=== PATIENT | male | born 1935 | race Caucasian/White ===

== ENCOUNTER 2016-12-06 04:20 | Outpatient (CLI) | payer MEDICARE, OTHER ==
[~2016-12-06] VITALS: Ht 177.8 cm; Wt 78.3 kg
--- NOTE | ~2016-12-06 | HEMODYNAMI ---
PATIENT:RAHEEM DEAN MEDICAL RECORD: [id number] : 37 LOCATION[id number] ADMISSION DATE: 12/06/16 Generatedon:12/07/20169:38 Patient name: RAHEEM DEAN Patient #: [id number] SSN: [id number] : 1935 Date of study: 12/07/2016 Page: Of Hemodynamic Procedure Report Patient Data Patient Demographics Procedure consent was obtained First Name: RAHEEM Gender: Male Last Name: DIANNE : 1935 Patient #: [id number] Age: 81 year(s) Race: Unknown SSN: [id number] Additional ID: [id number] Contact details Address: [address] [place] [address] [address] State: [place] City: [facility] Zip code: [address] Past Medical History Allergies Allergen Reaction Date Comments Reported Other allergy 12/06/2016 statins Other allergy 12/07/2016 STATINS Admission Admission Data Admission Date: 12/06/2016 Admission Time: 4:20 Arrival Date: 12/06/2016 Arrival Time: 4:20 Admit Source: Other Insurance Payor: Medicare Room #: D.2119 Height (in.): 70 BSA: 1.95 (m2) Height (cm.): 177.8 BMI: 24.39 (kg/m2) Weight (lbs.): 170 Weight (kg.): 77.11 Lab Results Lab Result Date: 12/06/2016 Lab Result Time: 0:00 Biochemistry Name Units Result Min Max CK-MB ng/ml 2.6 --(--*-)-- 0 3.6 Creatinine mg/dl 1.3 --(---*)-- 0.6 1.3 Troponin l ng/ml 0.122 --(----)-* 0 0.06 CBC Name Units Result Min Max Hemoglobin g/dl 15.1 --(-*--)-- 13.5 17.5 Procedure Procedure Types Cath Procedure PCI Procedure [id number] Initial Procedure Description Procedure Date Procedure Date: 12/07/2016 Procedure Start Time: 9:22 Procedure End Time: 9:36 Procedure Staff Name Function Bharath Lange MD Performing Physician Portia Garcia RT Scrub Herminia Isaac RN Nurse Marcus Mcnamara RN Volleyball Commentator Tyrone Tapia RT Monitor Adry Mckenna RT Monitor Procedure Data Cath Procedure Fluoroscopy Diagnostic fluoroscopy Total fluoroscopy Time: time: 1:07 min 1:07 min Diagnostic fluoroscopy Total fluoroscopy dose: 228 dose: 228 mGy mGy Contrast Material Contrast Material Type Amount (ml) Isovue 300 40 Entry Location Entry Primary Successful Side Size Upsize Upsize Entry Closure Succes sful Closure Location (Fr) 1 (Fr) 2 (Fr) Remarks Device Remarks Femoral Right 6 Fr Vascade artery Short Closure System Estimated blood loss: 10 ml Procedure Complications No complications Procedure Medications Medication Administration Route Dosage Oxygen NC 2 l/min Heparin Flush Bag added to field 2 bags (1000units/500ml NS) 0.9% NaCl I.V. 100 ml/hr Versed I.V. 1 mg Fentanyl I.V. 50 mcg Heparin Bolus I.V. 4000 units Versed I.V. 1 mg Fentanyl I.V. 50 mcg Hemodynamics Rest BSA: 1.95 (m2) HGB: 15.1 (g/dl) O2 Consumption: Estimated: 224.42 (ml/min) O2 Co nsumption indexed: Estimated:115.09 (ml/min/m) Heart Rate: 72 (bpm) Snapshots Pre Cath Intra NCS Post Cath Vital Signs Time Heart Resp SPO2 NIBP (mmHg) Rhythm Pain Sedation Rate (ipm) (%) Status Level (bpm) 8:54:07 79 12 97 145/89(124) NSR 0 (11) 10(A) , No pain 8:58:29 73 10 96 134/70(115) NSR 0 (11) 10(A) , No pain 9:02:49 76 10 97 112/73(93) NSR 0 (11) 10(A) , No pain 9:06:55 78 21 96 114/80(97) NSR 0 (11) 10(A) , No pain 9:11:03 80 16 95 112/76(90) NSR 0 (11) 10(A) , No pain 9:15:09 95 19 95 113/79(99) NSR 0 (11) 10(A) , No pain 9:19:19 77 17 96 114/70(91) NSR 0 (11) 10(A) , No pain 9:23:30 82 18 94 105/64(81) NSR 0 (11) 9(A) , No pain 9:27:39 84 23 95 109/64(92) NSR 0 (11) 9(A) , No pain 9:31:48 81 15 94 106/59(81) NSR 0 (11) 10(A) , No pain 9:35:56 80 23 95 103/65(87) NSR 0 (11) 10(A) , No pain Medications Time Medication Route Dose Verified Delivered Reason Notes Effectiveness by by 8:56:20 Oxygen NC 2 Bharath Buffie used for l/min Anisa Isaac RN procedure 8:56:38 Heparin Flush added 2 Bharath Bharath used for Bag to bags Anisa Lange MD procedure (1000units/500ml field NS) 8:56:47 0.9% NaCl I.V. 100 Bharath Buffie Per physician ml/hr Anisa Isaac RN 9:20:06 Versed I.V. 1 mg Bharath Buffie for sedation Anisa Isaac RN 9:20:13 Fentanyl I.V. 50 Bharath Buffie for sedation mcg Anisa Isaac RN 9:24:19 Heparin Bolus I.V. 4000 Bharath Buffie for verifie d units Anisa Isaac RN anticoagulation with dr lange 9:29:56 Versed I.V. 1 mg Bharath Buffie for sedation Anisa Isaac RN 9:29:59 Fentanyl I.V. 50 Bharath Buffie for sedation mcg Anisa Isaac RN Procedure Log Time Note 8:01:55 Marcus Mcnamara RN sent for patient. Start room use. 8:21:06 Informed consent obtained and on chart 8:25:00 Admit Source: Other 8:26:04 Time tracking: Regular hours 8:26:08 Plan of Care:Hemodynamics will remain stable., Cardiac rhythm will remain stable., Comfort level will be maintained., Respiratory function will remain adequate., Patient/ family verbilizes understanding of procedure., Procedure tolerated without complication., Recovers from procedure without complications.. 8:28:04 H&P Date Dictated: 12/06/2016 Within 30 days and on chart.. 8:28:28 ACC Patient presents with Unstable Angina CCS Anginal Class 3--Marked limitation of physical activity, angina occurs with ordinary activity.. 8:43:17 Patient received from PCU to CCL 1 Alert and oriented. Tansferred to table in Supine position. 8:43:18 Warm blankets applied, and ana hugger turned on for patient comfort. 8:43:18 Correct patient and procedure confirmed by team. 8:43:19 ECG and BP/O2 sat monitors applied to patient. 8:43:22 Full Disclosure recording started 8:43:24 Pre-procedure instructions explained to patient. 8:43:24 Pre-op teaching completed and patient verbalized understanding. 8:43:32 Family in waiting room. 8:43:34 Patient NPO since Midnight. 8:48:27 Patient allergic to Other allergySTATINS 8:48:30 Is the patient allergic to Iodine/contrast media? No. 8:48:31 Is patient on blood thinner?Yes 8:48:34 ACC The patient was administered the following blood thiners within the last 24 hours: ACCPlavix 8:48:36 Patient diabetic? No. 8:48:38 Previous problem with sedation/anesthesia? No ? 8:48:39 Snore? Yes 8:48:42 Sleep apnea? No 8:48:43 Deviated septum? No 8:48:44 Opens mouth fully? Yes 8:48:44 Sticks out tongue? Yes 8:48:46 Airway obstruction? No ? 8:48:48 Dentures? No ? 8:48:57 Pre procedure: left dorsailis pedis pulse 1+ Palpable, but thready & weak; easily obliterated 8:48:59 Patient pain scale 0/10 ?. 8:49:42 IV patent on arrival in left wrist with 0.9% NaCl at KVO. 8:49:51 Lab results completed and on chart. 8:49:54 Left groin area was prepped with chlora-prep and draped in sterile fashion 8:49:56 Alarms reviewed by R. N. 8:49:56 Sharps counted by scrub and verified by R.N. 8:50:01 Use device set Femoral PCI 8:50:03 Acist Manifold opened to sterile field. 8:50:04 Merit BasixCompak Inflation Kit opened to sterile field. 8:50:05 Acist Syringe opened to sterile field. 8:50:06 Acist Hand Control opened to sterile field. 8:50:06 Bag Decanter opened to sterile field. 8:50:07 Cardinal Cath Pack opened to sterile field. 8:50:07 Terumo 6Fr [place] Sheath opened to sterile field. 8:50:08 St Jayme 260cm J .035 wire opened to sterile field. 8:50:08 Tegaderm 4 x 4 opened to sterile field. 8:50:14 [place] Whisper J 300cm 0.014 guide wire opened to sterile field. 8:52:26 Patient Height : 70 cm 8:52:34 Patient Weight : 170 kg 8:52:56 Vital chart was started 8:56:20 Oxygen 2 l/min NC was given by Herminia Isaac RN; used for procedure; 8:56:38 Heparin Flush Bag (1000units/500ml NS) 2 bags added to field was given by Bharath Lange MD; used for procedure; 8:56:47 0.9% NaCl 100 ml/hr I.V. was given by Herminia Isaac RN; Per physician; 8:59:23 Zero performed for pressure channel P1 8:59:44 Baseline sample Acquired. 9:00:18 Rhythm: sinus rhythm 9:19:12 Final Timeout: patient, procedure, and site verified with staff and physician. All members of the team are in agreement. 9:19:15 Left groin site verified by team. 9:19:18 Physical assessment completed. ASA score P 2 - A patient with mild systemic disease as per Bharath Lange MD. 9:19:22 Sedation plan: IV Moderate Sedation Versed, Fentanyl 9:20:06 Versed 1 mg I.V. was given by Herminia Isaac RN; for sedation; 9:20:13 Fentanyl 50 mcg I.V. was given by Herminia Isaac RN; for sedation; 9:22:22 Procedure started. 9:22:26 Local anesthetic to left femerol artery with Lidocaine 2% by Bharath Lange MD.INITIAL ACCESS ONLY 9:22:35 A 6 Fr Short sheath was inserted into the Right Femoral artery 9:22:50 Medtronic Launcher 6Fr AR 1.0 SH guide catheter opened to sterile field. 9:22:54 6 Fr AR 1.0 SH guide catheter was inserted over the wire 9:24:19 Heparin Bolus 4000 units I.V. was given by Herminia Isaac RN; for anticoagulation; verified with dr lange 9:29:56 Versed 1 mg I.V. was given by Herminia Isaac RN; for sedation; 9:29:59 Fentanyl 50 mcg I.V. was given by Herminia Isaac RN; for sedation; 9:30:57 whisper wire advanced. 9:30:58 Wire advanced across lesion. 9:31:01 Inflation Number: 1 A Medtronic Resolute 4.0 X 12 stent was prepped and advanced across the Aorta Left -> Mid CX. The stent was deployed at 17 ANALIA for 0:10 (min:sec). 9:31:05 Stent catheter was removed intact over wire. 9:31:06 Wire removed. 9:31:06 Guide catheter removed. 9:31:13 Vascade 6/7 Fr Closure Device opened to sterile field. 9:31:25 Sheath removed intact; hemostasis achieved with Vascade Closure System to the Right Femoral artery. 9:31:27 Procedure ended.(Physican Out) 9:31:43 Fluoroscopy time 1:07 minutes. 9:32:03 Flurop Dose total: 228 9:32:03 Fluoroscopy dose: 228 mGy 9:32:06 Contrast amount:Isovue 300 40ml. 9:32:08 Sharps counted by scrub and verified by R.N. 9:32:09 Insertion/operative site no bleeding no hematoma. 9:32:12 Post-op/insertion site Right Femoral artery dressed using a 4 x 4 and Tegaderm. 9:32:18 Post left femerol artery:stable, soft, clean and dry 9:32:24 Post Procedure Pulses reassessed and unchanged 9:32:26 Post-procedure physical assessment completed. ASA score P 2 - A patient with mild systemic disease as per Bharath Lange MD. 9:32:28 Post procedure rhythm: unchanged. 9:32:30 Estimated blood loss: 10 ml 9:32:31 Post procedure instruction explained to patient.Patient verbalizes understanding. 9:32:32 Patient needs reinforcement of post procedure teaching. 9:35:50 Procedure and supply charges have been captured, reviewed, submitted and are correct. 9:36:01 Procedure Complication : No complications 9:36:04 Vital chart was stopped 9:36:04 See physician's report for complete and final results. 9:36:06 Report given to PCU. 9:36:09 Patient transfered to PCU with Stretcher. 9:36:11 Procedure ended. 9:36:11 Full Disclosure recording stopped 9:36:17 ACC-PCI Only Patient was given prescriptions, or instructed by Bharath Lange MD to start/continue the following medications upon discharge: Plavix 9:37:03 End room use (Document Last) Intervention Summary Intervention Notes Time ActionType Lesion and Equipment Action# Pressure Duration Attributes Used 9:31:01 Place stent Aorta Left Medtronic 1 17 00:10 -> Mid CX Resolute 4.0 X 12 stent Device Usage Item Name Manufacture Quantity Catalog Hospital Part Current Minima l Lot# / Number Charge Number Stock Stock Serial# Code Acist Acist 1 16309 [id number] 536980 174188 5 Manifold Medical Systems Inc Merit Merit 1 [id number] 265272 521605 791866 15 BasixCompak Medical Inflation Kit Acist Acist 1 84331 742538 205387 660253 20 Syringe Medical Systems Inc Acist Hand Acist 1 84140 835129 892341 327856 5 Control Medical Systems Inc Bag Microtek 1 2002S 020067 73369 728874 5 Decanter Medical Inc. Cardinal Cardinal 1 [id number] 581930 30804 515334 5 Cath [facility] Terumo 6Fr Tero 1 [id number] 110535 474901 381208 [address] [place] [address] Jayme 1 144430 201322 483090 056425 30 260cm J .035 wire Tegaderm 4 3M 1 1626W 544564 759593 831906 5 x 4 Altamirano Altamirano 1 [id number] 870003 035669 926513 5 Whisper J Vascular 300cm 0.014 guide wire Medtronic Medtronic 1 [id number] 387279 999894 0 [id number] Resolute 4.0 X 12 stent Vascade 6/7 Cardiva 1 [id number] 574077 408193 392687 5 Fr Closure Medical, Device Inc. Medtronic Medtronic 1 [id number] 55777 052543 1 Launcher 6Fr AR 1.0 SH guide catheter Signature Audit [place] Stage Time Signature Unsigned Intra-Procedure 12/07/2016 Tyrone Tapia 9:38:11 AM RT(R) Signatures Monitor : Tyrone Tapia RT Signature : Date : Time : Monitor : Adry Signature : Counts RT Date : Time : [place] [id number] [place] [address]
--- NOTE | ~2016-12-06 | HEMODYNAMI ---
PATIENT:RAHEEM DEAN MEDICAL RECORD: [id number] : 37 [id number] ADMISSION DATE: 12/06/16 Generatedon:12/06/201613:00 Patient name: RAHEEM DEAN Patient #: [id number] SSN: [id number] : 1935 Date of study: 12/06/2016 Page: Of Hemodynamic Procedure Report Patient Data Patient Demographics Procedure consent was obtained First Name: RAHEEM Gender: Male Last Name: DIANNE : 1935 Patient #: [id number] Age: 81 year(s) Race: Unknown SSN: [id number] Additional ID: [id number] Contact details Address: [address] [place] [address] [address] State: [place] City: [facility] Zip code: [address] Past Medical History Allergies Allergen Reaction Date Comments Reported Other allergy 12/06/2016 statins Admission Admission Data Admission Date: 12/06/2016 Admission Time: 4:20 Arrival Date: 12/06/2016 Arrival Time: 4:20 Admit Source: Emergency Insurance Payor: Medicare department Room #: D.2119 Lab Results Lab Result Date: 12/06/2016 Lab Result Time: 0:00 Biochemistry Name Units Result Min Max CK-MB ng/ml 2.6 --(--*-)-- 0 3.6 Creatinine mg/dl 1.3 --(---*)-- 0.6 1.3 Troponin l ng/ml 0.122 --(----)-* 0 0.06 CBC Name Units Result Min Max Hemoglobin g/dl 15.1 --(-*--)-- 13.5 17.5 Procedure Procedure Types Cath Procedure Diagnostic Procedure LHC LHC w/Coronaries w/Grafts PCI Procedure Coronary Stent Initial Peripheral Cath Diagnostic Procedure Cath Peripheral Four Vessel Arteriogram Procedure Description Procedure Date Procedure Date: 12/06/2016 Procedure Start Time: 12:36 Procedure End Time: 12:57 Procedure Staff Name Function Bharath Lange MD Performing Physician Adry Mckenna RT Scrub Marcus Mcnamara RN Nurse Giselle Pollock RT Monitor Procedure Data Cath Procedure Fluoroscopy Diagnostic fluoroscopy Total fluoroscopy Time: 5.9 time: 5.9 min min Diagnostic fluoroscopy Total fluoroscopy dose: dose: 1040 mGy 1040 mGy Contrast Material Contrast Material Type Amount (ml) Isovue 370 144 Entry Location Entry Primary Successful Side Size Upsize Upsize Entry Closure Succes sful Closure Location (Fr) 1 (Fr) 2 (Fr) Remarks Device Remarks Femoral Right 5 Fr 6 Fr Vascade artery Short Closure System Estimated blood loss: 5 ml Diagnostic catheters Device Type Used For End Catheter Placement Cordis 5Fr Pigtail LV Angiography Catheter (MP) Cordis 5Fr JL 4.0 Left Coronary Catheter (MP) Angiography Cordis 5Fr 3DRC Catheter Right Coronary (MP) Angiography Cordis Infinity 5Fr AR 2 Multi-vessel MOD catheter Angiography Procedure Complications No complications Procedure Medications Medication Administration Route Dosage Oxygen NC 2 l/min Heparin Flush Bag added to field 2 bags (1000units/500ml NS) 0.9% NaCl I.V. 100 ml/hr Fentanyl I.V. 50 mcg Versed I.V. 1 mg Fentanyl I.V. 50 mcg Versed I.V. 1 mg Heparin Bolus I.V. 4000 units Integrilin (Bolus I.V. 6.8 ml 2mg/ml) Hemodynamics Rest HGB: 15.1 (g/dl) Heart Rate: 91 (bpm) Pressure Samples Time Site Value (mmHg) Purpose Heart Use Rate(bpm) 12:38 LV 65/16,16 Snapshot 87 Snapshots Pre Cath Intra NCS Post Cath Vital Signs Time Heart Resp SPO2 NIBP (mmHg) Rhythm Pain Sedation Rate (ipm) (%) Status Level (bpm) 12:29:51 79 14 95 125/77(101) NSR 0 (11) 10(A) , No pain 12:34:05 83 12 92 104/64(77) NSR 0 (11) 10(A) , No pain 12:38:11 86 19 94 99/66(83) NSR 0 (11) 9(A) , No pain 12:42:14 85 18 94 99/58(96) NSR 0 (11) 9(A) , No pain 12:46:16 86 17 92 106/70(91) NSR 0 (11) 9(A) , No pain 12:50:20 85 18 94 105/73(80) NSR 0 (11) 9(A) , No pain 12:55:17 86 18 93 89/67(83) NSR 0 (11) 9(A) , No pain 12:57:07 85 17 94 100/61(77) NSR 0 (11) 9(A) , No pain Medications Time Medication Route Dose Verified Delivered Reason Notes Effectiveness by by 12:35:16 Oxygen NC 2 Marcus Marcus Per physician l/min Anders Mcnamara RN RN 12:35:25 Heparin Flush added 2 Marcus Marcus used for Bag to bags Anders Mcnamara RN procedure (1000units/500ml field RN NS) 12:35:36 0.9% NaCl I.V. 100 Marcus Marcus Per physician ml/hr Anders Mcnamara RN RN 12:35:43 Fentanyl I.V. 50 Marcus Marcus for sedation mcg Anders Mcnamara RN RN 12:35:49 Versed I.V. 1 mg Marcus Marcus for sedation Anders Mcnamara RN RN 12:37:37 Fentanyl I.V. 50 Marcus Marcus for sedation mcg Anders Mcnamara RN RN 12:37:42 Versed I.V. 1 mg Marcus Marcus for sedation Anders Mcnamara RN RN 12:48:36 Heparin Bolus I.V. 4000 Marcus Marcus for units Anders Mcnamara RN anticoagulation RN 12:48:49 Integrilin I.V. 6.8 Marcus Marcus for (Bolus 2mg/ml) ml Anders Mcnamara RN antiplatelet RN therapy Procedure Log Time Note 12:04:38 Admit Source: Emergency department 12:04:41 Marcus Mcnamara RN sent for patient. Start room use. 12:04:43 Time tracking: Call back 12:04:47 Plan of Care:Hemodynamics will remain stable., Cardiac rhythm will remain stable., Comfort level will be maintained., Respiratory function will remain adequate., Patient/ family verbilizes understanding of procedure., Procedure tolerated without complication., Recovers from procedure without complications.. 12:14:59 ACC Patient presents with Non-STEMI CCS Anginal Class 3--Marked limitation of physical activity, angina occurs with ordinary activity.. 12:15:03 ACCPatient has been prescribed/administered the following anti-anginal medication within the last 2 weeks: None 12:: Lab Result : Troponin l 0.122 ng/ml : Lab Result : CK-MB 2.6 ng/ml 12: Lab Result : Creatinine 1.3 mg/dl : Lab Result : Hemoglobin 15.1 g/dl 12::35 Patient received from PCU to CCL 1 Alert and oriented. Tansferred to table in Supine position. 12:19:36 Warm blankets applied, and ana hugger turned on for patient comfort. 12::36 Correct patient and procedure confirmed by team. 12::37 Signed procedure consent form obtained from patient. 12::38 ECG and BP/O2 sat monitors applied to patient. 12::39 Full Disclosure recording started 12:28:48 Vital chart was started 12:28:57 Baseline sample Acquired. 12:29:02 Rhythm: sinus rhythm 12:29:20 H&P Date Dictated: 12/06/2016 New H&P dictated by physician.. 12:29:21 Pre-procedure instructions explained to patient. 12:29:22 Pre-op teaching completed and patient verbalized understanding. 12:29:23 Family in waiting room. 12:29:24 Patient NPO since Midnight. 12:29:34 Patient allergic to Other allergystatins 12:29:36 Is the patient allergic to Iodine/contrast media? No. 12:29:37 Was the patient premedicated? No 12:29:39 Is patient on blood thinner?Yes 12:29:43 ACC The patient was administered the following blood thiners within the last 24 hours: ACCPlavix 12:29:45 Patient diabetic? No. 12:29:47 Previous problem with sedation/anesthesia? No ? 12:29:49 Snore? Yes 12:29:50 Sleep apnea? No 12:29:52 Deviated septum? No 12:29:53 Opens mouth fully? Yes 12:29:54 Sticks out tongue? Yes 12:29:56 Airway obstruction? No ? 12:29:59 Dentures? No ? 12:30:02 Pre procedure: right dorsailis pedis pulse 1+ Palpable, but thready & weak; easily obliterated 12:30:05 Patient pain scale 0/10 ?. 12:30:17 IV patent on arrival in right forearm with 0.9% NaCl at [facility]. 12:30:22 Lab results completed and on chart. 12:30:26 Right groin area was prepped with chlora-prep and draped in sterile fashion 12:30: Alarms reviewed by R. N. 12:: Sharps counted by scrub and verified by R.N. 12:34:13 Physician arrived 12::14 --------ALL STOP TIME OUT------ 12:34:14 Final Timeout: patient, procedure, and site verified with staff and physician. All members of the team are in agreement. 12:34:16 Right groin site verified by team. 12:34:18 Physical assessment completed. ASA score P 2 - A patient with mild systemic disease as per Bharath Lange MD. 12:34:21 Sedation plan: IV Moderate Sedation Versed, Fentanyl 12:34:23 Zero performed for pressure channel P1 12:34:37 Use device set Femoral Dx 12:34:38 Acist Syringe opened to sterile field. 12:34:38 Bag Decanter opened to sterile field. 12:34:39 Cardinal Cath Pack opened to sterile field. 12:34:39 Terumo 5Fr Bacliff Sheath opened to sterile field. 12:34:40 St Jayme 260cm J .035 wire opened to sterile field. 12:34:41 Acist Hand Control opened to sterile field. 12:34:41 Acist Manifold opened to sterile field. 12:34:42 Cordis Infinity 5Fr Multipack catheter opened to sterile field. 12:34:43 Tegaderm 4 x 4 opened to sterile field. 12:35:16 Oxygen 2 l/min NC was given by Marcus Mcnamara RN; Per physician; 12:35:25 Heparin Flush Bag (1000units/500ml NS) 2 bags added to field was given by Marcus Mcnamara RN; used for procedure; 12:35:36 0.9% NaCl 100 ml/hr I.V. was given by Marcus Mcnamara RN; Per physician; 12:35:43 Fentanyl 50 mcg I.V. was given by Marcus Mcnamara RN; for sedation; 12:35:49 Versed 1 mg I.V. was given by Marcus Mcnamara RN; for sedation; 12:36:17 Procedure started. 12:36:38 Local anesthetic to right femoral artery with Lidocaine 2% by Bharath Lange MD.INITIAL ACCESS ONLY 12:36:47 A 5 Fr sheath was inserted into the Right Femoral artery 12:37:17 A Cordis 5Fr Pigtail Catheter (MP) was advanced over the wire and used for LV Angiography. 12:37:37 Fentanyl 50 mcg I.V. was given by Marcus Mcnamara RN; for sedation; 12:37:42 Versed 1 mg I.V. was given by Marcus Mcnamara RN; for sedation; 12:38:06 LV hemodynamics recorded. 12:38:07 LV gram done using CALLAHAN 12:38:10 Injector settings: Ml/sec: 5, Volume: 15, 12:38:16 EF : 40 % 12:38:31 Catheter removed. 12:38:35 A Cordis 5Fr JL 4.0 Catheter (MP) was advanced over the wire and used for Left Coronary Angiography. 12:38:47 LCA angiography performed. 12:38:50 Injector settings: Ml/sec: 3, Volume: 6, 12:39:52 Catheter removed. 12:39:58 A Cordis 5Fr 3DRC Catheter (MP) was advanced over the wire and used for Right Coronary Angiography. 12:40:10 Bilateral carotid angiography performed. 12:40:36 GASCA angiography performed. 12:41:48 RCA angiography performed. 12:43:05 Catheter removed. 12:43:17 A Cordis Infinity 5Fr AR 2 MOD catheter was advanced over the wire and used for Multi-vessel Angiography. 12:44:07 SVG to RCA angiography performed. 12:45:54 Catheter removed. 12:45:55 Proceeding to intervention. 12:46:23 Altamirano Fielder XT J 300cm 0.014 guide wire opened to sterile field. 12:46:23 Cantimer BasixCompak Inflation Kit opened to sterile field. 12:46:24 Terumo 6Fr Bacliff Sheath opened to sterile field. 12:46:30 Cordis 6FR XBLAD 3.5 guide catheter opened to sterile field. 12:46:44 Sheath upsized to a 6 Fr Short. 12:46:51 6 Fr xblad 3.5 guide catheter was inserted over the wire 12:46:56 fielder wire advanced. 12:47:13 Wire advanced across lesion. 12:48:36 Heparin Bolus 4000 units I.V. was given by Marcus Mcnamara RN; for anticoagulation; 12:48:49 Integrilin (Bolus 2mg/ml) 6.8 ml I.V. was given by Marcus Mcnamara RN; for antiplatelet therapy; 12:49:52 Inflation number: 1 A Euphora 2.0 x 15 Balloon was prepped and advanced across the Prox CX, then inflated to 17 ANALIA for 0:10 (min:sec). 12:50:03 Inflation number: 2 The Euphora 2.0 x 15 Balloon was reinflated across the Prox CX, to 17 ANALIA for 0:10 (min:sec). 12:50:15 Inflation number: 3 The Euphora 2.0 x 15 Balloon was reinflated across the Prox CX, to 21 ANALIA for 0:10 (min:sec). 12:50:35 Balloon removed over the wire. 12:51:58 Inflation Number: 4 A Sentilliontronic Integrity 2.5 X 22 stent was prepped and advanced across the Prox CX. The stent was deployed at 17 ANALIA for 0:10 (min:sec). 12:54:10 Stent catheter was removed intact over wire. 12:54:10 Wire removed. 12:54:11 Guide catheter removed. 12:54:17 Vascade 6/7 Fr Closure Device opened to sterile field. 12:54:28 Sheath removed intact; hemostasis achieved with Vascade Closure System to the Right Femoral artery. 12:54:30 Procedure ended.(Physican Out) 12:55:13 Fluoroscopy time 05.90 minutes. 12:55:35 Fluoroscopy dose: 1040 mGy 12:55:35 Flurop Dose total: 1040 12:55:40 Contrast amount:Isovue 370 144ml. 12:55:42 Sharps counted by scrub and verified by R.N. 12:56:21 Insertion/operative site no bleeding no hematoma. 12:56:25 Post-op/insertion site Right Femoral artery dressed using a 4 x 4 and Tegaderm. 12:56:27 Post right femoral artery:stable 12:56:29 Post Procedure Pulses reassessed and unchanged 12:56:31 Post procedure rhythm: unchanged. 12:56:33 Estimated blood loss: 5 ml 12:56:35 Post procedure instruction explained to patient.Patient verbalizes understanding. 12:56:35 Patient needs reinforcement of post procedure teaching. 12:56:57 Procedure type changed to Cath procedure, Diagnostic procedure, LHC, LHC w/Coronaries w/Grafts, PCI procedure, Coronary Stent Initial, Peripheral Cath Diagnostic Procedure, Cath Peripheral, Four Vessel Arteriogram 12:56:58 Procedure and supply charges have been captured, reviewed, submitted and are correct. 12:57:02 Procedure Complication : No complications 12:57:05 Vital chart was stopped 12:57:05 See physician's report for complete and final results. 12:57:09 Report given to [facility]. 12:57:11 Patient transfered to [facility] with Stretcher. 12:57:13 Procedure ended. 12:57:13 Full Disclosure recording stopped 12:58:11 ACC-PCI Only Patient was given prescriptions, or instructed by Bharath Lange MD to start/continue the following medications upon discharge: Plavix 12:58:12 End room use (Document Last) 12:59:09 Arrival Date: 12/06/2016 4:20:00 AM 12:59:20 Insurance Payor : Medicare Intervention Summary Intervention Notes Time ActionType Lesion and Equipment Action# Pressure Duration Attributes Used 12:49:52 Inflate Prox CX Euphora 1 17 00:10 balloon 2.0 x 15 Balloon 12:50:03 Reinflate Prox CX Euphora 2 17 00:10 balloon 2.0 x 15 Balloon 12:50:15 Reinflate Prox CX Euphora 3 21 00:10 balloon 2.0 x 15 [address] 12:51:58 [address] stent Prox CX Medtronic 4 17 00:10 Integrity 2.5 X 22 stent Device Usage Item Name Manufacture Quantity Catalog Hospital Part Current Minima l Lot# / Number Charge Number Stock Stock Serial# Code Acist Acist 1 06181 766062 623925 247901 20 Syringe Medical Systems Inc Bag Microtek 1 2002S 117056 86563 311383 5 DecTianma [employer] Medical Inc. Cardinal Cardinal [address] [id number] 79743 933046 5 StepOut Terumo 5Fr Terumo 1 [id number] 882820 430205 292390 [address] [facility] St Jayme 1 531432 062633 254204 805763 30 260cm J .035 wire Acist Hand Acist 1 45894 408810 979185 312703 5 Control Medical Systems Inc Acist Acist 1 89191 657515 191340 527583 5 Manifold Medical Systems Inc Cordis Cardinal 1 [id number] 695363 12249 285405 30 Infinity Health 5Fr Multipack catheter Tegaderm 4 3M 1 1626W 072223 538132 491543 5 x 4 Cordis 5Fr Cardinal 1 595555 5 Pigtail Health Catheter (MP) Cordis 5Fr Cardinal 1 424354 5 JL 4.0 Health Catheter (MP) Cordis 5Fr Cardinal 1 641418 5 3DRC Health Catheter (MP) Cordis Cardinal 1 [id number] 975536 249860 558896 20 Infinity Health 5Fr AR 2 MOD catheter Altamirano Altamirano 1 [id number] 154763 150087 276374 5 Fielder XT Vascular J 300cm 0.014 guide wire Merit Merit 1 [id number] 366346 989393 782418 15 Kairos[employer] Medical Inflation Kit Terumo 6Fr Terumo 1 [id number] 918140 321462 481738 40 Bacliff Sheath Cordis 6FR Cardinal 1 [id number] 733732 586980 677634 10 XBLAD 3.5 Health guide catheter Euphora 2.0 Medtronic 1 [id number] 574483 052571 313214 5 [id number] x 15 Balloon Medtronic Medtronic 1 [id number] 543813 366261 4 [id number] Integrity 2.5 X 22 stent Vascade 6/7 Cardiva 1 [id number] 449163 789541 674803 5 Fr Closure Medical, Device Inc. Signature Audit Grimes Stage Time Signature Unsigned Intra-Procedure 12/06/2016 Giselle Pollock 1:00:01 PM RT(R) Signatures Monitor : Giselle Pollock RT Signature : Date : Time : [facility] [address] [place] [address]
[2016-12-06 03:29] LABS: BASOPHILS 0.6 % (0.0-2.0); EOSINOPHILS 3.2 % (0-7); HEMATOCRIT 41.6 % (42.0-54.0); HEMOGLOBIN 15.1 g/dL (13.5-17.5); IMMATURE GRANULOCYTES 0.3 % (0-5); LYMPHOCYTES 30.3 % (15-50); MCH 32.9 pg (26.0-34.0); MCHC 36.3 g/dL (31.0-37.0); MCV 90.6 fL (80.0-100.0); MEAN PLATELET VOLUME 9.5 fL (7.4-10.4); MONOCYTES 12.3 % (2-11); NEUTROPHILS 53.3 % (40-80); RBC 4.59 10x6/uL (4.20-6.10); RDW 13.8 % (11.5-14.5); WBC 6.5 10x3/uL (4.8-10.8)
[2016-12-06 03:30] LABS: PLATELET COUNT 155 10x3/uL (130-400)
[2016-12-06 03:44] LABS: ALBUMIN 3.9 g/dL (3.4-5.0); ALKALINE PHOSPHATASE 60 U/L (46-116); ALT (SGPT) 17 U/L (10-68); BILIRUBIN - TOTAL 0.56 mg/dL (0.2-1.3); CALC OSMOLALITY 280 mosm/kg (275-300); CALCIUM 9.3 mg/dL (8.5-10.1); CARBON DIOXIDE 27.1 mmol/L (21.0-32.0); CHLORIDE - SERUM 103 mmol/L (98-107); CREATININE - SERUM 1.3 mg/dL (0.6-1.3); GLUCOSE 112 mg/dL (74-106); POTASSIUM - SERUM 4.1 mmol/L (3.5-5.1); PROTEIN - SERUM 7.1 g/dL (6.4-8.2); SODIUM 139 mmol/L (136-145); UREA NITROGEN 17 mg/dL (7-18); eGFR NON AFRICAN AMERICAN 56 mL/min (90-120)
[2016-12-06 04:07] LABS: CHOL - HDL RATIO 4.2 ratio (2.3-4.9); CHOLESTEROL, TOTAL 134 mg/dL (0-200); CKMB 2.6 U/L (0.0-3.6); CREATINE KINASE 93 UL (21-232); HDL CHOLESTEROL 32 mg/dL (32-96); LDL CHOLESTEROL 49 mg/dL (0-100); LDL-HDL RATIO 1.5 ratio (1.5-3.5); PRO BNP 543 pg/mL (0-450); TRIGLYCERIDE 267 mg/dL (30-200)
[2016-12-06 04:08] LABS: TROPONIN-I 0.122 ng/mL (0.000-0.060)
[2016-12-06] MEDS ORDERED: FLOVENT DI50 MCG/DIS INH (05:14)
[2016-12-06] MEDS ORDERED: FLOMAX0.4 MG PO (05:14)
[2016-12-06] MEDS ORDERED: NEURONTIN 300300 MG PO (05:16)
[2016-12-06] MEDS ORDERED: RYTHMOL225 MG PO (05:16)
[2016-12-06] MEDS ORDERED: SYNTHROID75 MCG PO (05:17)
[2016-12-06] MEDS ORDERED: COREG 3.1253.125 MG PO (05:18)
[2016-12-06] MEDS ORDERED: BAYER CHEWABLE81 MG PO (05:19)
--- NOTE | 2016-12-06 05:25 | NUR ---
PT ARRIVED VIA W/C FROM ER WITH DX CP. SR WITH BBB PER CM HR 64. PT DENIES ANY DISCOMFORT. AT BEDSIDE. WILL CONTINUE TO MONITOR.
[2016-12-06 05:32] VITALS: BP 97/58; Ht 177.8 cm; Wt 78.3 kg
[2016-12-06] MEDS ORDERED: MIRALAX17 GM PO (05:52)
--- NOTE | 2016-12-06 05:57 | NUR ---
ADMISSION ASSESSMENT, HISTORY AND HOME MED LIS COMPLETED. PT DENIES ANY DISCOMFORT. DENIES NEED FOR O2. IV TO RFA SL. PT HAS A HISTORY OF POLYCYTHEMIA. WILL CONTINUE TO MONITOR.
--- NOTE | 2016-12-06 06:51 | NUR ---
STATES PT HAD SYNCOPAL EPISODE ON THE WAY TO THE BR AND SHE HELPED HIM SIT ON THE FLLOR. PT AND SPOUSE DENY FALLING. BP 63/41 SITTING AND HR 63. BP 84/57 HR 57 LUYIONG DOWN. INFORMED PT NOT TO GET OUT OF BED. BED ALARM ON AT THIS TIME. SR WITH BBB PER CM. PT ALERT AND ORIENTED. WILL CONTINUE TO MONITOR.
--- NOTE | 2016-12-06 07:03 | NUR ---
BP NOW 93/57. HR 66. WILL CONTINUE TO MONITOR.
[2016-12-06 08:00] VITALS: BP 98/53
[2016-12-06 08:22] VITALS: BP 95/53
--- NOTE | 2016-12-06 09:26 | NUR ---
RESTS IN BED WITHOUT NEEDS VOICED. TELEMETRY SR. AT BS. WILL CONT. PLAN OF CARE.
[2016-12-06 12:07] VITALS: BP 102/59
--- NOTE | 2016-12-06 12:26 | NUR ---
PRE-OPS GIVEN. 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
--- NOTE | 2016-12-06 13:30 | NUR ---
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 VS WNL. RIGHT GROIN STABLE WITHOUT BLEEDING OR HEMATOMA NOTED. WILL MONITOR.
--- NOTE | 2016-12-06 17:45 | NUR ---
BED REST UP. GROIN STABLE.
--- NOTE | 2016-12-06 19:21 | NUR ---
RESUMED CARE OF PT, LYING IN BED RESPIRATIONS EVEN AND UNLABORED ON 2LPM VIA NC. 96 SR WITH BBB ON TELEMETRY. RIGHT FOREARM SALINE LOCKED. RIGHT GROIN C/D/I. NO NEEDS VOICED AT THIS TIME. WILL CONTINUE TO MONITOR. SEE NURSE ASSESSMENT. CALL LIGHT IN REACH.
--- NOTE | 2016-12-06 22:59 | NUR ---
IV TO RIGHT FOREARM INFILTRATED, DC'D WITH TIP INTACT. PER PT REQUEST WILL WAIT UNTIL AM TO RESITE.
--- NOTE | 2016-12-06 23:24 | NUR ---
JUVENILE COURT LIAISON AT BEDSIDE TO OBTAIN VITALS, CALL LIGHT IN REACH. WILL CONTINUE WITH PLAN OF CARE.
[2016-12-07] VITALS (9 sets, daily range): BP systolic 86–137; BP diastolic 39–77
--- NOTE | 2016-12-07 05:42 | NUR ---
20 GAUGE TO 1 STICK TO LEFT FOREARM. REMAINS NPO AT THIS TIME. NO CHANGES FROM PREVIOUS ASSESSMENT. CALL LIGHT IN REACH.
--- NOTE | 2016-12-07 07:30 | NUR ---
RECEIVED PT IN BED EYES CLOSED RESP UNLABORED NAD NOTED
[2016-12-07] MEDS ORDERED: PLAVIX75 MG PO (11:32)
--- NOTE | 2016-12-07 15:05 | NUR ---
REVIEWED DISCHARGE INSTRUCTIONS WITH PT AND BOTH STATE UNDERSTANDING COPY GIVEN SALINE LOCK DCDLFA WITH 20 GA IV CATHETER INTACT O REDNESS OR EDEMA NOTED TO SITE
--- NOTE | 2016-12-07 15:08 | NUR ---
PT DISCHARGED HOME IN STABLE CONDITION LEFT UNIT VIA W/C WITH ALL PERSONAL BELONGINGS
--- NOTE | 2016-12-11 11:11 | OP ---
PATIENT NAME: RAHEEM DEAN MEDICAL RECORD: [id number] :37 LOCATION:D.OPS ADMISSION DATE: SURGEON: FLAKITA JONES MD DATE OF OPERATION: 12/06/2016 PROCEDURES: 1. PTCA, stent of the left circumflex. 2. Left heart catheterization. 3. Selective coronary angiography. 4. Vein graft angiography. 5. GASCA angiography. 6. Left ventriculogram. INDICATION: Angina and coronary artery disease. PROCEDURE IN DETAIL: After informed consent was obtained and after a detailed explanation of the risks, benefits, as well as alternative therapies, the patient elected to proceed with angiogram and angioplasty. The right femoral area had a preexisting sheath from 4-vessel angiography. All catheters exchanged through this sheath. FINDINGS: Left ventriculogram was performed in standard 30-degree CALLAHAN view, reveals global hypokinesis, ejection fraction in the 40% range. SELECTIVE CORONARY ANGIOGRAPHY: 1. Left main showed no significant angiographic disease. 2. Left anterior descending is totally occluded. 3. Left circumflex has 99% stenosis proximally. This feeds the second obtuse marginal. The first obtuse marginal was totally occluded. 4. Vein graft to the first obtuse marginal was patent; however, there is 70% stenosis in the proximal aspect. The second obtuse marginal was not grafted. 5. Right coronary is totally occluded. 6. Vein graft to the right coronary is widely patent; however, after the patent vein graft, there is a 70% to 80% stenosis in the distal RCA. PTCA STENT OF THE LEFT CIRCUMFLEX: We stented the subtotal occlusion with a 2.5 x 22 mm Integrity. Result was 0% residual stenosis. OVERALL IMPRESSION: Successful percutaneous transluminal coronary angioplasty stent of the left circumflex going from 99% initial stenosis to 0% residual. PLAN: PTCA, stent of the RCA and left circumflex, vein graft in the near future. TRANSINT:[id number] Voice Confirmation ID: [id number] DOCUMENT ID: [id number] FLAKITA JONES MD at 1111 CC: [id number] DICTATION DATE: 12/06/16 1301 INSPECTOR FILTER TIP: 12/06/16 1332 DEP CLI 12/07/16 [place] [address]
--- NOTE | 2016-12-11 11:11 | HP ---
PATIENT: RAHEEM DEAN MEDICAL RECORD: [id number] ACCOUNT: [id number] LOCATION:[facility] : 37 ADMISSION DATE: 12/06/16 HISTORY AND PHYSICAL EXAMINATION DIAGNOSES: 1. Non-Q-wave myocardial infarction. 2. Coronary artery disease. 3. Status post coronary bypass graft surgery 3 vessels in 2008. 4. Hypotension. 5. Syncope. Mr. Moser presented with episodes of syncope over the past 2 weeks and he began developing chest pain. He had another episode of syncope yesterday. He was initially told that his syncope is secondary to the combination of his Flomax and his Coreg. He was told to stop the Coreg. He did not do this and he has continued both medications. His systolic blood pressure has been in the 90s. His troponin is positive for non-Q-wave myocardial infarction. His 12-lead ECG is with nonspecific ST-T abnormalities inferolaterally. PHYSICAL EXAMINATION: GENERAL APPEARANCE: Well-nourished, well-developed, appears stated age. Level of distress, comfortable. PSYCHIATRIC: Mental status, alert, normal affect. Orientation, oriented to time, place and person. EYES: Lids and conjunctiva, noninjected. No discharge, no pallor. ENT: Lips, teeth, gums, normal dentition. Oropharynx, no cyanosis, no pallor. NECK: Carotid arteries, bilateral normal upstroke, no bruits, no thrills. JUGULAR VEINS: No jugular venous pressure or distention. CERVICAL LYMPH NODES: Nontender, nonenlarged. THYROID: Not enlarged. Nontender. No nodules. LUNGS: Respiratory effort, unlabored. CHEST: Normal curvature. No thoracic deformity. No chest wall tenderness. Percussion, resonant. Auscultation, clear. No wheezes, no rales, no rhonchi. CARDIOVASCULAR: Precordial exam, nondisplaced. No heaves or pericardial thrills. Rate and rhythm, regular. Heart sounds, normal S1, normal S2. No S3, no gallop, no rub. Systolic murmur, not heard. Diastolic murmur, not heard. EXTREMITIES: No cyanosis, no edema. Peripheral pulses, full and equal in all extremities, except as noted. No bruits appreciated. ABDOMEN: Soft, nondistended. Normal aorta. No bruit. Nontender. No masses. Liver, nontender, no hepatomegaly. Spleen, nontender, no splenomegaly. MUSCULOSKELETAL: No joint tenderness. No joint swelling. No erythema. NEUROLOGICAL: Normal gait, normal strength, normal tone. SKIN: Warm and dry. REVIEW OF SYSTEMS: The patient reports easy bruising but reports no swollen glands. The patient reports no fever, no night sweats, no significant weight gain, no significant weight loss. No significant exercise tolerance. The patient reports no dry eyes, no irritation, no vision change. Patient reports no difficulty hearing and no ear pain. Patient reports no frequent nose bleeds or nose and sinus problems. Patient reports on arm pain on exertion. No shortness of breath while lying down. No history of heart murmur. Patient reports no cough, no wheezing or coughing up blood. Patient reports no abdominal pain, no vomiting. Normal appetite. No diarrhea and not vomiting blood. No nausea and no constipation. Patient reports no incontinence. No HISTORY AND PHYSICAL [id number] RAHEEM DEAN difficulty urinating. No hematuria. No increased frequency. Patient reports no muscle aches. No weakness, no arthralgias, no back pain. No swelling of the extremities. Patient reports no abnormal mole, no jaundice, no rashes. Reports no loss of consciousness. No weakness and no numbness. No seizures, dizziness, or headaches. The patient reports no depression, no sleep disturbance, feeling safe in a relationship and no alcohol abuse. Patient reports on fatigue. Reports no runny nose or sinus pressure. No itching, no hives, and no frequent sneezing. OVERALL IMPRESSION: Syncope, most likely secondary to the hypotension of the Coreg and Flomax. We will discontinue the Coreg. The non-Q-wave myocardial infarction; however, and development of chest pain is most likely recurrent hemodynamically significant coronary artery disease. We will proceed with coronary angiography. Further care depends upon findings of the angiography. TRANSINT:[id number] Voice Confirmation ID: [id number] DOCUMENT ID: [id number] FLAKITA JONES MD at 1111 CC: [id number] DICTATION DATE: 12/06/16 1126 TRANSPORTATION DEPARTMENT SUPERVISOR: 12/06/16 1146 DEP CLI 12/07/16 [place] [address]
--- NOTE | 2016-12-11 11:11 | DS ---
PATIENT:RAHEEM DEAN :37 MEDICAL RECORD: [id number] DISCHARGE SUMMARY ADMISSION DATE: 12/06/16 DISCHARGE DATE: 12/07/16 DIAGNOSES: 1. Anginal symptomatology. 2. Coronary artery disease. 3. Percutaneous transluminal coronary angioplasty stent vein graft to left circumflex and [place] left circumflex this admission. 4. Hypertension. 5. Hyperlipidemia. HOSPITAL COURSE: Mr. Moser presents with anginal symptomatology, found to have 3-vessel coronary artery disease of the vein graft of the RCA after the vein graft of the [place] left circumflex and the vein graft to the obtuse marginal, underwent successful PTCA stent of the vein graft to the obtuse marginal and the [place] circumflex. He was discharged home with the addition of aspirin and Plavix to his medical regimen. We will follow up in 1 week for PTCA stent of the right coronary artery: TRANSINT:[id number] Voice Confirmation ID: [id number] DOCUMENT ID: [id number] FLAKITA JONES MD at 1111 CC: [id number] DICTATION DATE: 12/07/16937 PRACTICE ADMINISTRATOR: 12/07/16 1044 DEP CLI 12/07/16 [facility] [address] [place] [address]
--- NOTE | 2016-12-11 11:11 | OP ---
PATIENT NAME: RAHEEM DEAN MEDICAL RECORD: [id number] :37 LOCATION:[facility] ADMISSION DATE: SURGEON: FLAKITA JONES MD DATE OF OPERATION: 12/07/2016 PROCEDURES: 1. PTCA, stent vein graft to the circumflex obtuse marginal. 2. Selective coronary angiography. INDICATION: Angina and coronary artery disease. PROCEDURE IN DETAIL: After informed consent was obtained and after detailed explanation of risks, benefits, as well as alternative therapies, the patient elected to proceed with angiogram and angioplasty. The left femoral area was prepped and draped in normal sterile fashion. Left femoral artery was cannulated via modified Seldinger technique with placement of 6-Yi sheath. All catheters exchanged through this sheath. FINDINGS: The vein graft to the circumflex obtuse marginal has a 70% to 80% stenosis proximally. This was addressed with a 4.0 x 12 mm Resolute stent taken to 21 atmospheres. Result was 0% residual stenosis. OVERALL IMPRESSION: Successful percutaneous transluminal coronary angioplasty stent of the vein graft to the circumflex going from 70% to 80% initial stenosis to 0% residual. TRANSINT:[id number] Voice Confirmation ID: [id number] DOCUMENT ID: [id number] FLAKITA JONES MD at 1111 CC: [id number] DICTATION DATE: 12/07/1639 ECHOCARDIOGRAPHY TECH: 12/07/16 0958 DEP CLI 12/07/16 [place] [id number]
--- NOTE | 2016-12-11 11:11 | OP ---
PATIENT NAME: RAHEEM DEAN MEDICAL RECORD: [id number] :37 LOCATION:[facility] ADMISSION DATE: SURGEON: FLAKITA JONES MD DATE OF OPERATION: 12/06/2016 PROCEDURES: Four-vessel carotid and vertebral angiography. INDICATION: Carotid vascular disease and syncope. PROCEDURE IN DETAIL: After informed consent was obtained and after detailed explanation of risks, benefits, as well as alternative therapies, the patient elected to proceed with angiogram and carotid angiography. The right femoral area was prepped and draped in normal sterile fashion. The right femoral artery was cannulated via modified Seldinger technique with placement of 6-Bulgarian sheath. All catheters exchanged through this sheath. FINDINGS: There was a subselection beats subclavian as well as the left carotid. RIGHT SIDE: The common internal and external carotids have mild plaquing, none greater than 20%, no flow-limiting stenosis. Vertebral arteries devoid of disease. LEFT SYSTEM: The common internal and external carotids have mild plaquing, none greater than 10, no flow-limiting stenosis. Vertebral arteries devoid of disease. OVERALL IMPRESSION: Minimal carotid vascular disease is present. No flow limiting stenosis. Syncope is not secondary to carotid vascular insufficiency. TRANSINT:[id number] Voice Confirmation ID: [id number] DOCUMENT ID: [id number] FLAKITA JONES MD at 1111 CC: [id number] DICTATION DATE: 12/06/16 1259 PACKAGE LINE RELIEF OPERATOR: 12/06/16 1324 DEP CLI 12/07/16 [place] [id number]
== END 2016-12-07 16:00 | disposition home or self-care (01) ==
LOC: OBSVTIME → D.ER 04:20 → D.M2 04:20 → D.OPS 04:20 → OBSVTIME 04:20 → EDSTATUS 12-07 11:15 → D.M2 12-07 13:21 → D.SDCHOLD 12-07 13:21 → D.M2 12-07 15:10 → D.OPS 12-07 16:00
PROVIDERS: Emergency Medicine
DX: I21.4 Non-ST elevation (NSTEMI) myocardial infarction (principal); I23.7 Postinfarction angina; I25.118 Atherosclerotic heart disease of native coronary artery with other forms of angina pectoris; I25.718 Atherosclerosis of autologous vein coronary artery bypass graft(s) with other forms of angina pectoris; I65.22 Occlusion and stenosis of left carotid artery; I95.9 Hypotension, unspecified
CPT/HCPCS: 92928; 93459; 36222; 36225; C9604

== ENCOUNTER 2016-12-11 07:18 | Outpatient (CLI) | payer MEDICARE, OTHER ==
[~2016-12-11] VITALS: Ht 177.8 cm; Wt 77.3 kg
--- NOTE | ~2016-12-11 | HEMODYNAMI ---
PATIENT:RAHEEM DEAN MEDICAL RECORD: [id number] : 37 LOCATION:[facility] ADMISSION DATE: 12/11/16 Generatedon:12/11/201611:01 Patient name: RAHEEM DEAN Patient #: [id number] SSN: [id number] : 1935 Date of study: 12/11/2016 Page: Of Hemodynamic Procedure Report Patient Data Patient Demographics Procedure consent was obtained First Name: RAHEEM Gender: Male Last Name: DIANNE : 1935 Middle Initial: H Age: 81 year(s) Patient #: [id number] Race: Unknown SSN: [id number] Additional ID: [id number] Contact details Address: [address] [place] [address] [address] State: [place] City: [facility] Zip code: [address] Past Medical History Allergies Allergen Reaction Date Comments Reported Other allergy 12/06/2016 statins Other allergy 12/07/2016 STATINS Admission Admission Data Admission Date: 12/11/2016 Admission Time: 7:18 Admit Source: Other Insurance Payor: Medicare, Private health insurance Height (in.): 70 BSA: 1.95 (m2) Height (cm.): 177.8 BMI: 24.39 (kg/m2) Weight (lbs.): 170 Weight (kg.): 77.11 Lab Results Lab Result Date: 12/11/2016 Lab Result Time: 0:00 Biochemistry Name Units Result Min Max BUN mg/dl 19 --(----)*- 7 18 Creatinine mg/dl 1.5 --(----)-* 0.6 1.3 CBC Name Units Result Min Max Hemoglobin g/dl 14.6 --(-*--)-- 13.5 17.5 Procedure Procedure Types Cath Procedure PCI Procedure Coronary Stent Initial SVG-BMS/JERICA Initial Procedure Description Procedure Date Procedure Date: 12/11/2016 Procedure Start Time: 10:53 Procedure End Time: 11:00 Procedure Staff Name Function Bharath Lange MD Performing Physician Armani Wong RT Scrub Miryam Paulson RN Nurse Portia Garcia RT Monitor Procedure Data Cath Procedure Fluoroscopy Diagnostic fluoroscopy Total fluoroscopy Time: 1.3 time: 1.3 min min Diagnostic fluoroscopy Total fluoroscopy dose: 169 dose: 169 mGy mGy Contrast Material Contrast Material Type Amount (ml) Isovue 300 37 Entry Location Entry Primary Successful Side Size Upsize Upsize Entry Closure Succes sful Closure Location (Fr) 1 (Fr) 2 (Fr) Remarks Device Remarks Femoral Right 6 Fr Vascade artery Short Closure System Estimated blood loss: 10 ml Procedure Complications No complications Procedure Medications Medication Administration Route Dosage Oxygen NC 2 l/min Heparin Flush Bag added to field 2 bags (1000units/500ml NS) Lidocaine 2% added to field 20 Versed I.V. 1 mg Fentanyl I.V. 50 mcg Versed I.V. 1 mg Fentanyl I.V. 50 mcg Heparin Bolus I.V. 4000 units Hemodynamics Rest BSA: 1.95 (m2) HGB: 14.6 (g/dl) O2 Consumption: Estimated: 223.8 (ml/min) O2 Con sumption indexed: Estimated:114.77 (ml/min/m) Heart Rate: 71 (bpm) Snapshots Pre Cath Intra NCS Post Cath Vital Signs Time Heart Resp SPO2 NIBP (mmHg) Rhythm Pain Sedation Rate (ipm) (%) Status Level (bpm) 10:32:05 70 23 100 160/96(140) NSR 0 (11) 10(A) , No pain 10:36:19 68 22 100 166/89(139) NSR 0 (11) 10(A) , No pain 10:41:18 67 15 94 Measuring NSR 0 (11) 10(A) , No pain 10:41:28 68 19 96 139/83(113) NSR 0 (11) 10(A) , No pain 10:45:38 74 14 97 127/83(99) NSR 0 (11) 9(A) , No pain 10:49:52 72 16 97 112/54(72) NSR 0 (11) 9(A) , No pain 10:53:54 71 15 97 118/75(95) NSR 0 (11) 9(A) , No pain 10:57:59 73 22 96 114/68(88) NSR 0 (11) 9(A) , No pain 10:59:50 70 20 96 123/73(93) NSR 0 (11) 9(A) , No pain Medications Time Medication Route Dose Verified Delivered Reason Notes Effectiveness by by 10:34:45 Oxygen NC 2 Bharath Miryam Per physician l/min Anisa Paulson RN 10:34:51 Heparin Flush added 2 Bharath Bharath used for Bag to bags Anisa Lange MD procedure (1000units/500ml field NS) 10:34:58 Lidocaine 2% added 20ml Bharath Bharath used for to vial Anisa Lange MD procedure field 10:40:30 Versed I.V. 1 mg Bharath Miryam for sedation Anisa Paulson RN 10:40:35 Fentanyl I.V. 50 Bharath Miryam for sedation mcg Anisa Paulson RN 10:44:07 Versed I.V. 1 mg Bharath Miryam for sedation Anisa Paulson RN 10:44:09 Fentanyl I.V. 50 Bharath Miryam for sedation mcg Anisa Paulson RN 10:53:59 Heparin Bolus I.V. 4000 Bharath Miryam for dose units Anisa Paulson RN anticoagulation verified with dr lange Procedure Log Time Note 10:15:46 Miryam Paulson RN sent for patient. Start room use. 10:23:39 ACC Patient presents with Stable Angina CCS Anginal Class 2--Slight limitation of ordinary activity. 10:23:42 Diagnostic Cath status Elective 10:25:37 Time tracking: Regular hours 10::58 Plan of Care:Hemodynamics will remain stable., Cardiac rhythm will remain stable., Comfort level will be maintained., Respiratory function will remain adequate., Patient/ family verbilizes understanding of procedure., Procedure tolerated without complication., Recovers from procedure without complications.. 10:26:04 Patient received from Outpatients to CCL 1 Alert and oriented. Tansferred to table in Supine position. 10:26:06 Warm blankets applied, and ana hugger turned on for patient comfort. 10:26:06 Correct patient and procedure confirmed by team. 10:30:56 Signed procedure consent form obtained from patient. 10:30:57 ECG and BP/O2 sat monitors applied to patient. 10:30:58 Baseline sample Acquired. 10:30:58 Vital chart was started 10:31:00 Rhythm: sinus rhythm 10:31:02 Full Disclosure recording started 10:33:46 H&P Date Dictated: 12/11/2016 Within 30 days and on chart., H&P Addendum completed by physician on day of procedure. (MUST COMPLETE FOR ALL OUTPATIENTS). 10:33:47 Pre-procedure instructions explained to patient. 10:33:49 Family in waiting room. 10:33:51 Patient NPO since Midnight. 10:34:14 Is the patient allergic to Iodine/contrast media? No. 10:34:17 Was the patient premedicated? Yes 10:34:19 Is patient on blood thinner?Yes 10:34:23 ACC The patient was administered the following blood thiners within the last 24 hours: ACCPlavix 10:34:25 Patient diabetic? No. 10:34:30 Snore? Yes 10:34:31 Sleep apnea? No 10:34:33 Deviated septum? No 10:34:38 Opens mouth fully? Yes 10:34:45 Oxygen 2 l/min NC was given by Miryam Paulson RN; Per physician; 10:34:45 Patient pain scale 0/10 ?. 10:34:51 Heparin Flush Bag (1000units/500ml NS) 2 bags added to field was given by Bharath Lange MD; used for procedure; 10:34:54 IV patent on arrival in left forearm with 0.9% NaCl at KVO. 10:34:58 Lidocaine 2% 20ml vial added to field was given by Bharath Lange MD; used for procedure; 10:35:04 Lab results completed and on chart. 10:35:09 Right groin area was prepped with chlora-prep and draped in sterile fashion 10:35:14 Physician paged 10:40:09 Physician arrived 10:40:10 --------ALL STOP TIME OUT------ 10:40:11 Final Timeout: patient, procedure, and site verified with staff and physician. All members of the team are in agreement. 10:40:15 Right groin site verified by team. 10:40:20 Physical assessment completed. ASA score P 2 - A patient with mild systemic disease as per Bharath Lange MD. 10:40:24 Sedation plan: IV Moderate Sedation Versed, Fentanyl 10:40:30 Versed 1 mg I.V. was given by Miryam Paulson RN; for sedation; 10:40:35 Fentanyl 50 mcg I.V. was given by Miryam Paulson RN; for sedation; 10:41:01 Use device set Femoral PCI 10:41:02 Acist Syringe opened to sterile field. 10:41:03 Acist Hand Control opened to sterile field. 10:41:04 Bag Decanter opened to sterile field. 10:41:05 Cardinal Cath Pack opened to sterile field. 10:41:06 Terumo 6Fr Iaeger Sheath opened to sterile field. 10:41:08 St Jayme 260cm J .035 wire opened to sterile field. 10:41:09 Merit BasixCompak Inflation Kit opened to sterile field. 10:41:10 Acist Manifold opened to sterile field. 10:41:11 Tegaderm 4 x 4 opened to sterile field. 10:41:23 Altamirano Whisper J 300cm 0.014 guide wire opened to sterile field. 10:41:28 PCI Cath status Elective 10:44:03 Zero performed for pressure channel P1 10:44:07 Versed 1 mg I.V. was given by Miryam Paulson RN; for sedation; 10:44:09 Fentanyl 50 mcg I.V. was given by Miryam Paulson RN; for sedation; 10:44:11 Zero performed for pressure channel P1 10:44:21 Zero performed for pressure channel P1 10:47:40 Admit Source: Other 10:47:58 Patient Height : 177.8 cm 10:48:11 Patient Weight : 77.11 kg 10:48:11 Insurance Payor : Private health insurance, Medicare 10:51:23 Procedure started. 10:52:59 Lab Result : BUN 19 mg/dl 10:52:59 Lab Result : Hemoglobin 14.6 g/dl 10:52:59 Lab Result : Creatinine 1.5 mg/dl 10:52:59 Hemodynamic formulas in Rest were re-calculated based on hemoglobin value from 12/11/2016 12:00:00 AM 10:53:15 Local anesthetic to right femoral artery with Lidocaine 2% by Bharath Lange MD.INITIAL ACCESS ONLY 10:53:24 A 6 Fr Short sheath was inserted into the Right Femoral artery 10:53:44 6 Fr MB1 guide catheter was inserted over the wire 10:53:48 Whisper wire advanced. 10:53:59 Heparin Bolus 4000 units I.V. was given by Miryam Paulson RN; for anticoagulation; dose verified with dr lange 10:53:59 Medtronic Launcher 6Fr MB 1 guide catheter opened to sterile field. 10:54:08 Wire advanced across lesion. 10:56:16 Inflation Number: 1 A Medtronic Resolute 3.0 X 15 stent was prepped and advanced across the Mid RCA. The stent was deployed at 13 ANALIA for 0:10 (min:sec). 10:58:18 Vascade 6/7 Fr Closure Device opened to sterile field. 10:58:26 Stent catheter was removed intact over wire. 10:58:28 Wire removed. 10:58:28 Guide catheter removed. 10:58:51 Sheath removed intact; hemostasis achieved with Vascade Closure System to the Right Femoral artery. 10:58:55 Procedure ended.(Physican Out) 10:59:07 Fluoroscopy time 01.30 minutes. 10:59:12 Fluoroscopy dose: 169 mGy 10:59:12 Flurop Dose total: 169 10:59:17 Contrast amount:Isovue 300 37ml. 10:59:18 Sharps counted by scrub and verified by R.N. 10:59:23 Insertion/operative site no bleeding no hematoma. 10:59:27 Post-op/insertion site Right Femoral artery dressed using a 4 x 4 and Tegaderm. 10:59:31 Post Procedure Pulses reassessed and unchanged 10:59:46 Post-procedure physical assessment completed. ASA score P 2 - A patient with mild systemic disease as per Bharath Lange MD. 10:59:51 Post procedure rhythm: unchanged. 10:59:55 Estimated blood loss: 10 ml 10:59:57 Post procedure instruction explained to patient.Patient verbalizes understanding. 11:00:01 Procedure type changed to Cath procedure, PCI procedure, Coronary Stent Initial, SVG-BMS/JERICA Initial 11:00:03 Procedure and supply charges have been captured, reviewed, submitted and are correct. 11:00:23 Procedure Complication : No complications 11:00:25 Vital chart was stopped 11:00:27 See physician's report for complete and final results. 11:00:29 Report given to Outpatients. 11:00:32 Patient transfered to Outpatients with Stretcher. 11:00:34 Procedure ended. 11:00:34 Full Disclosure recording stopped 11:00:41 End room use (Document Last) Intervention Summary Intervention Notes Time ActionType Lesion and Equipment Action# Pressure Duration Attributes Used 10:56:16 Place stent Mid RCA Medtronic 1 13 00:10 Resolute 3.0 X 15 stent Device Usage Item Name Manufacture Quantity Catalog Hospital Part Current Minima l Lot# / Number Charge Number Stock Stock Serial# Code Acist Acist 1 90221 920938 255866 786282 20 Syringe Medical Systems Inc Acist Hand Acist 1 77850 735723 990116 458711 5 Control Medical Systems Inc Bag Microtek 1 2002S 169318 25553 762282 5 DecUC CEIN Inc. Cardinal Cardinal 1 [id number] 819051 96279 575650 5 Cath Solafeet Terumo 6Fr Terumo 1 [id number] 896095 151207 667648 [address] [facility] St Jayme 1 [id number] 295654 469470 495561 30 260cm J .035 wire Merit Merit 1 [id number] 650826 848614 868471 15 BasixCompak Medical Inflation Kit Acist Acist 1 95182 869444 138864 818176 5 Manifold Medical Systems Inc Tegaderm 4 3M 1 1626W 801103 177115 447950 5 x 4 Altamirano Altamirano 1 [id number] 044557 784395 238225 5 Whisper J Vascular 300cm 0.014 guide wire Medtronic Medtronic 1 [id number] 762077 66116 064914 1 Launcher 6Fr MB 1 guide catheter Medtronic Medtronic 1 [id number] 098628 787986 6 [id number] Resolute 3.0 X 15 stent Vascade 6/7 Cardiva 1 [id number] 161798 337413 652674 5 Fr Closure Medical, Device Inc. Signature Audit Dahlgren Stage Time Signature Unsigned Intra-Procedure 12/11/2016 Portia Garcia 11:01:15 AM RT(R) Signatures Monitor : Portia Garcia Signature : RT Date : Time : [place] [address] [place] [address]
[~2016-12-11 07:18] MED LIST: BAYER CHEWABLE81 MG PO; COREG 3.1253.125 MG PO; FLOMAX0.4 MG PO; FLOVENT DI50 MCG/DIS INH; MIRALAX17 GM PO; NEURONTIN 300300 MG PO; PLAVIX75 MG PO; RYTHMOL225 MG PO; SYNTHROID75 MCG PO
[2016-12-11 08:08] VITALS: BP 154/87; BMI 24.4
[2016-12-11 08:12] VITALS: BP 154/87; Ht 177.8 cm; Wt 77.3 kg
[2016-12-11 08:13] LABS: BASOPHILS 0.8 % (0.0-2.0); EOSINOPHILS 4.3 % (0-7); HEMATOCRIT 41.5 % (42.0-54.0); HEMOGLOBIN 14.6 g/dL (13.5-17.5); IMMATURE GRANULOCYTES 0.3 % (0-5); LYMPHOCYTES 22.7 % (15-50); MCH 32.7 pg (26.0-34.0); MCHC 35.2 g/dL (31.0-37.0); MCV 92.8 fL (80.0-100.0); MEAN PLATELET VOLUME 8.5 fL (7.4-10.4); MONOCYTES 12.8 % (2-11); NEUTROPHILS 59.1 % (40-80); PLATELET COUNT 182 10x3/uL (130-400); RBC 4.47 10x6/uL (4.20-6.10); RDW 13.9 % (11.5-14.5); WBC 6.5 10x3/uL (4.8-10.8)
[2016-12-11 08:37] LABS: ANION GAP 12.2 mmol/L (8-16); CALCIUM 10.3 mg/dL (8.5-10.1); CARBON DIOXIDE 28.3 mmol/L (21.0-32.0); CREATININE - SERUM 1.5 mg/dL (0.6-1.3); POTASSIUM - SERUM 4.5 mmol/L (3.5-5.1)
--- NOTE | 2016-12-11 11:11 | HP ---
PATIENT: RAHEEM DEAN MEDICAL RECORD: [id number] ACCOUNT: [id number] LOCATION:[facility] : 37 ADMISSION DATE: 12/11/16 HISTORY AND PHYSICAL EXAMINATION DATE OF HISTORY AND PHYSICAL: 12/11/2016 ADMITTING DIAGNOSES: 1. Angina. 2. Coronary artery disease. 3. Recent percutaneous transluminal coronary angioplasty stent of the left circumflex with concomitant disease of the right coronary artery. 4. Hypertension. 5. Hyperlipidemia. HISTORY OF PRESENT ILLNESS: Mr. Dean presented with anginal symptomatology, found to have significant disease of the left circumflex as well as RCA, underwent successful PTCA stent of the left circumflex. He is now brought back for PTCA stent of the RCA in a staged fashion. PHYSICAL EXAMINATION: GENERAL APPEARANCE: Well-nourished, well-developed, appears stated age. Level of distress, comfortable. PSYCHIATRIC: Mental status, alert, normal affect. Orientation, oriented to time, place and person. EYES: Lids and conjunctiva, noninjected. No discharge, no pallor. ENT: Lips, teeth, gums, normal dentition. Oropharynx, no cyanosis, no pallor. NECK: Carotid arteries, bilateral normal upstroke, no bruits, no thrills. JUGULAR VEINS: No jugular venous pressure or distention. CERVICAL LYMPH NODES: Nontender, nonenlarged. THYROID: Not enlarged. Nontender. No nodules. LUNGS: Respiratory effort, unlabored. CHEST: Normal curvature. No thoracic deformity. No chest wall tenderness. Percussion, resonant. Auscultation, clear. No wheezes, no rales, no rhonchi. CARDIOVASCULAR: Precordial exam, nondisplaced. No heaves or pericardial thrills. Rate and rhythm, regular. Heart sounds, normal S1, normal S2. No S3, no gallop, no rub. Systolic murmur, not heard. Diastolic murmur, not heard. EXTREMITIES: No cyanosis, no edema. Peripheral pulses, full and equal in all extremities, except as noted. No bruits appreciated. ABDOMEN: Soft, nondistended. Normal aorta. No bruit. Nontender. No masses. Liver, nontender, no hepatomegaly. Spleen, nontender, no splenomegaly. MUSCULOSKELETAL: No joint tenderness. No joint swelling. No erythema. NEUROLOGICAL: Normal gait, normal strength, normal tone. SKIN: Warm and dry. REVIEW OF SYSTEMS: The patient reports easy bruising but reports no swollen glands. The patient reports no fever, no night sweats, no significant weight gain, no significant weight loss. No significant exercise tolerance. The patient reports no dry eyes, no irritation, no vision change. Patient reports no difficulty hearing and no ear pain. Patient reports no frequent nose bleeds or nose and sinus problems. Patient reports on arm pain on exertion. No shortness of breath while lying down. No history of heart murmur. Patient reports no cough, no wheezing or coughing up blood. Patient reports no abdominal pain, no vomiting. Normal appetite. No diarrhea and not vomiting blood. No nausea and no constipation. Patient reports no incontinence. No HISTORY AND PHYSICAL [id number] RAHEEM DEAN difficulty urinating. No hematuria. No increased frequency. Patient reports no muscle aches. No weakness, no arthralgias, no back pain. No swelling of the extremities. Patient reports no abnormal mole, no jaundice, no rashes. Reports no loss of consciousness. No weakness and no numbness. No seizures, dizziness, or headaches. The patient reports no depression, no sleep disturbance, feeling safe in a relationship and no alcohol abuse. Patient reports on fatigue. Reports no runny nose or sinus pressure. No itching, no hives, and no frequent sneezing. OVERALL IMPRESSION: Anginal symptomatology with significant disease of the right coronary artery. We will proceed with percutaneous transluminal coronary angioplasty stent of the right coronary artery. TRANSINT:[id number] Voice Confirmation ID: [id number] DOCUMENT ID: [id number] FLAKITA JONES MD at 1111 CC: [id number] DICTATION DATE: 12/11/16 09 FITNESS TEACHER: 12/11/16 0928 [facility] [address] [place] [id number]
--- NOTE | 2016-12-11 11:25 | NUR ---
1125 HR 66 WITH CHEST PAIN DENIED BP 117/72. RESPIRATIONS EVEN AND UNLABORED WITH O2 AT 2 LITERS. 6 FR VASCADE R/GROIN CDI NO BLEEDING NO HEMATOMA NOTED. INSTRUCTED PATIENT TO KEEP HEAD FLAT ON PILLOW WITH RLE STRAIGHT.
--- NOTE | 2016-12-11 11:46 | NUR ---
RESTING QUIELTY WITH EYES CLOSED. VSS WITH CHEST PAIN DENIED. 6 FR VASCADE R/GROIN CDI NO BLEEDING NO HEMATOMA NOTED. PULSES PRESENT AND MARKED. INSTRUCTED PATIENT TO KEEP HEAD FLAT ON PILLOW WITH RLE STRAIGHT
--- NOTE | 2016-12-11 12:06 | NUR ---
VSS WITH 6 FR VASCADE R/GROIN CDI NO BLEEDING NO HEMATOMA NOTED. FAMILY AT SIDE WILL MONITOR
--- NOTE | 2016-12-11 12:29 | NUR ---
VSS WITH CHEST PAIN DENIED. AT SIDE ASSISTING WITH SANDWICH TRAY AND SODA NAUSEA IS DENIED. 6 FR VASCADE R/GROIN CDI NO BLEEDING NO HEMATOMA NOTED
--- NOTE | 2016-12-11 13:25 | NUR ---
RESTING QUIETLY WITH EYES CLOSED RESPIRATIONS EVEN UNLABORED. 6 FR VASCADE R/GROIN CDI NO BLEEDING NO HEMATOMA NOTED
--- NOTE | 2016-12-11 14:05 | NUR ---
6 FR VASCADE R/GROIN CDI NO BLEEDING NO HEMATOMA NOTED. WILL MONITOR
--- NOTE | 2016-12-11 14:08 | NUR ---
CHANGE IN RHYTHM WITH MONITORING READING ATRIAL FIB AT [address]IENT DEN[address] CHEST PAIN DR JONES NOTIFIED
--- NOTE | 2016-12-11 14:39 | NUR ---
6 FR VASCADE R/GROIN CDI NO BLEEDING NO HEMATOMA NOTED. CHEST PAIN IS DENIED. PIV REMOVED FROM LEFT ARM WITH DRESSING APPLIED. PATIENT REPOSITIONED TO SITTING WITH HOB UP 30 DEGREES AT SIDE TO ASSIST WITH CLOTHING
--- NOTE | 2016-12-11 14:51 | NUR ---
DISCHARGE INSTRUCTIONS GONE OVER WITH PATIENT AND BOTH VERBALIZE UNDERSTANDING. TRANSPORTED VIA TO [facility] FOR TO DRIVE HOME
--- NOTE | 2016-12-18 16:40 | OP ---
PATIENT NAME: RAHEEM DEAN MEDICAL RECORD: [id number] :37 LOCATION:D.[facility] ADMISSION DATE: SURGEON: FLAKITA JONES MD DATE OF OPERATION: 12/11/2016 PROCEDURES: 1. PTCA stent RCA. 2. Selective coronary angiography. INDICATION: Angina and coronary artery disease. PROCEDURE IN DETAIL: After informed consent was obtained and after detailed explanation of risks, benefits as well as alternative therapies, the patient elected to proceed with angiogram and angioplasty. The right femoral area was prepped and draped in normal sterile fashion. The right femoral artery was cannulated via modified Seldinger technique with placement of 6-Vietnamese sheath. All catheters exchanged through this sheath. FINDINGS: The right coronary is 70-80% stenosed after a patent vein graft. This was addressed with a 3.0 x 15 mm Resolute stent. Result was 0% residual stenosis. OVERALL IMPRESSION: Successful percutaneous transluminal coronary angioplasty stent of the right coronary artery going from 70-80% initial stenosis to 0% residual. TRANSINT:[id number] Voice Confirmation ID: [id number] DOCUMENT ID: [id number] FLAKITA JONES MD at 1640 CC: [id number] DICTATION DATE: 12/11/16 1101 SHEET METAL WORKER: 12/11/16 1123 [facility] CLI 12/11/[address] [address]
== END 2016-12-11 14:53 | disposition home or self-care (01) ==
LOC: D.CATH 07:18
PROVIDERS: Internal Medicine Interventional Cardiology
DX: I25.119 Atherosclerotic heart disease of native coronary artery with unspecified angina pectoris (principal); Z95.5 Presence of coronary angioplasty implant and graft; I10 Essential (primary) hypertension; E78.5 Hyperlipidemia, unspecified

== ENCOUNTER → 2017-06-23 15:52 | Outpatient (CLI) | payer MEDICARE, OTHER ==
[2016-12-11 08:12] VITALS: BMI 24.4
== END | disposition home or self-care (01) ==
LOC: D.LAB 15:52
DX: Z12.5 Encounter for screening for malignant neoplasm of prostate (principal)

== ENCOUNTER 2017-07-22 05:33 | Day surgery (SDC) | payer MEDICARE, OTHER ==
[2017-07-21 16:26] LABS: BASOPHILS 0.5 % (0-2); EOSINOPHILS 3.4 % (0-7); HEMATOCRIT 45.5 % (42.0-54.0); HEMOGLOBIN 16.4 g/dL (13.5-17.5); IMMATURE GRANULOCYTES 0.2 % (0-5); LYMPHOCYTES 24.6 % (15-50); MCH 33.4 pg (26.0-34.0); MCV 92.7 fL (80.0-100.0); MEAN PLATELET VOLUME 8.7 fL (7.4-10.4); MONOCYTES 11.1 % (2-11); NEUTROPHILS 60.2 % (40-80); PLATELET COUNT 174 10x3/uL (130-400); RBC 4.91 10x6/uL (4.20-6.10); RDW 13.4 % (11.5-14.5); WBC 5.6 10x3/uL (4.8-10.8)
[2017-07-21 16:51] LABS: ANION GAP 12.1 mmol/L (8-16); CALCIUM 8.7 mg/dL (8.5-10.1); CARBON DIOXIDE 27.1 mmol/L (21.0-32.0); CREATININE - SERUM 1.5 mg/dL (0.6-1.3); POTASSIUM - SERUM 4.2 mmol/L (3.5-5.1)
[~2017-07-22] VITALS: Ht 177.8 cm; Wt 76.7 kg
[2017-07-22 09:46] VITALS: BP 138/70; Ht 177.8 cm; Wt 76.7 kg
--- NOTE | 2017-07-22 19:21 | NUR ---
1615 IV DC WITH CATHER TIP INTACT
--- NOTE | 2017-07-23 09:45 | OP ---
PATIENT NAME: GEOVANNY DEAN MEDICAL RECORD: [id number] :36 LOCATION:[facility] ADMISSION DATE: SURGEON: GEOVANNY HERNÁNDEZ MD DATE OF OPERATION: 07/22/2017 SURGEON: Geovanny Hernández MD ANESTHESIA: General anesthesia by, Troy Iglesias CRNA. PREOPERATIVE DIAGNOSIS: Elevated PSA 4.49. PROCEDURES: Transrectal ultrasound and prostate biopsy. FINDINGS: A 26-gram prostate. No hypoechoic areas. SPECIMENS: Prostate biopsy cores. ESTIMATED BLOOD LOSS: None. CLINICAL HISTORY: This is an 81-year-old male, who does not have any voiding symptoms. Multiple members of his family have cancer of the various kinds. There is no family history of prostate cancer, however. He is concerned about having prostate cancer as he has been having some perineal pain for the past few weeks. A recent PSA was obtained and it was elevated at 4.49. He comes now to have a prostate biopsy. HE IS ALLERGIC TO STATIN and DOROTHEA INHIBITORS. He was given Ancef 2 grams IV relationship counselor to the OR. When I saw him in the clinic, he was advised to take antibiotics as well as an enema the evening before. He neglected to do either of these things. However, he still wanted to continue. He is aware that infection as a risk of this procedure. DESCRIPTION OF PROCEDURE: The patient was given IV general anesthetic. He was then placed in dorsal lithotomy position and prepped and draped. The ultrasound probe was placed into the rectum and measurements of the prostate were obtained. Prostate volume was calculated at 26 grams. Sextant biopsies were obtained with at least 3 cores from each sextant. These are the right and left the apical, mid and base sextants. Once the procedure was done, the patient was brought to the recovery room. I have given him a prescription for Bactrim to take from today until it was done for the next 2 days. I will see him back in next week to followup on the pathology results with him. TRANSINT:[id number] Voice Confirmation ID: [id number] DOCUMENT ID: [id number] GEOVANNY HERNÁNDEZ MD at 0945 CC: [id number] DICTATION DATE: 07/22/17 1523 DIRECTOR OF RELIGIOUS LIFE: 07/22/17 2211 [facility] 07/22/17 [facility] [address] [place] [address]
== END 2017-07-22 16:30 | disposition home or self-care (01) ==
LOC: D.OPS 05:33 → D.PAN 10:15 → D.OPS 10:55 → D.PAN 10:55 → D.OPS 11:15 → D.PAN 11:15 → D.OPS 16:30
PROVIDERS: Anesthesiology
DX: R97.20 Elevated prostate specific antigen [PSA] (principal); I25.10 Atherosclerotic heart disease of native coronary artery without angina pectoris; E03.9 Hypothyroidism, unspecified; Z95.1 Presence of aortocoronary bypass graft; Z95.5 Presence of coronary angioplasty implant and graft; N40.1 Benign prostatic hyperplasia with lower urinary tract symptoms; R31.21 Asymptomatic microscopic hematuria; Z01.812 Encounter for preprocedural laboratory examination; C61 Malignant neoplasm of prostate

== ENCOUNTER → 2017-08-10 08:41 | Outpatient (CLI) | payer MEDICARE, OTHER ==
[2017-07-22 09:46] VITALS: BMI 24.2
[2017-08-10 10:24] LABS: CREATININE - SERUM 1.5 mg/dL (0.6-1.3)
== END | disposition home or self-care (01) ==
LOC: D.NM 08:41
PROVIDERS: Urology
DX: C61 Malignant neoplasm of prostate (principal)

== ENCOUNTER → 2018-02-01 14:36 | Outpatient (CLI) | payer MEDICARE, OTHER ==
[2017-07-22 09:46] VITALS: BMI 24.2
== END | disposition home or self-care (01) ==
LOC: D.LAB 14:36
DX: C61 Malignant neoplasm of prostate (principal)

== ENCOUNTER → 2018-08-08 10:02 | Outpatient (CLI) | payer MEDICARE, OTHER ==
[2017-07-22 09:46] VITALS: BMI 24.2
== END | disposition home or self-care (01) ==
LOC: D.LAB 10:02
DX: R97.20 Elevated prostate specific antigen [PSA] (principal); Z12.5 Encounter for screening for malignant neoplasm of prostate

== ENCOUNTER → 2019-01-31 14:17 | Outpatient (CLI) | payer MEDICARE, OTHER ==
[2017-07-22 09:46] VITALS: BMI 24.2
== END | disposition home or self-care (01) ==
LOC: D.LAB 14:17
PROVIDERS: ATTEND Urology
DX: C61 Malignant neoplasm of prostate (principal)

== ENCOUNTER 2020-06-13 08:40 | Day surgery (SDC) | payer MEDICARE, OTHER ==
--- NOTE | 2020-06-11 15:33 | NUR ---
PEREZ NOTE: T98.3 O2SAT 95% P62 R20 BP 122/62
[2020-06-11 15:38] LABS: HEMOGLOBIN 16.3 g/dL (13.5-17.5); LYMPHOCYTES 22.4 % (15-50); MCH 32.7 pg (26.0-34.0); MCHC 34.7 g/dL (31.0-37.0); MCV 94.4 fL (80.0-100.0); MEAN PLATELET VOLUME 7.9 fL (7.4-10.4); NEUTROPHILS 65.4 % (40-80); PLATELET COUNT 184 10x3/uL (130-400); RBC 4.98 10x6/uL (4.20-6.10); RDW 13.4 % (11.5-14.5); WBC 7.3 10x3/uL (4.8-10.8)
[2020-06-11 15:43] LABS: CALCIUM 8.7 mg/dL (8.5-10.1); CARBON DIOXIDE 31.1 mmol/L (21.0-32.0); CREATININE - SERUM 1.2 mg/dL (0.6-1.3); POTASSIUM - SERUM 4.1 mmol/L (3.5-5.1)
[~2020-06-13] VITALS: Ht 170.2 cm; Wt 74.8 kg
[2020-06-13] MEDS ORDERED: TRAZODONE HCL150 MG PO (09:09)
[2020-06-13] MEDS ORDERED: HYDROCODON-ACE1 EA10 PO ×2 (09:09→13:15)
[2020-06-13 09:28] VITALS: BP 153/79; Ht 170.2 cm; Wt 74.8 kg
--- NOTE | 2020-06-13 11:01 | NUR ---
PATIENTS GENITAL CHECKED AFTER POSITION NO IMPINGEMENTS, TWORLEY.
--- NOTE | 2020-06-13 12:12 | NUR ---
NO NUMBNESS OR TINGLING -- EQUAL STRENGHT BOTH LOWER EXTREMETIES
[2020-06-13] MEDS ORDERED: MEDROL DOSE PACK4 MG PO (13:15)
--- NOTE | 2020-06-13 13:58 | NUR ---
1400 PT ASSITED TO BATHROOM AND TRYING TO URINATE
--- NOTE | 2020-06-13 14:07 | NUR ---
1320 2ND IV HUNG AND PT UNABLE TO VOID, SITTING UP ON SIDE OF BED EATING ICE CREAM AND SOUP
--- NOTE | 2020-06-13 15:02 | NUR ---
1500 PT BLADDER SCANNED AND RECIEVED 718ML DR SIERRA CALLED INTO ROOM. ORDERS GIVEN FOR A IN AND OUT CATH
--- NOTE | 2020-06-13 15:46 | NUR ---
1500 BLADDER SCAN DONE X2 [address] SIERRA CALLED AND ORDERS GIVEN FOR IN AND OUT CATH 1525 IV REMOVED AND PRESSURE HELD.1525 RECIEVED 450ML URINE ROCHELLE IN COLOR.
--- NOTE | 2020-06-21 11:01 | OP ---
PATIENT NAME: RAHEEM DEAN MEDICAL RECORD: [id number] :36 LOCATION:[facility] ADMISSION DATE: SURGEON: MOHINDER STEVENS MD DATE OF OPERATION: 06/13/2020 DATE OF SERVICE: 06/13/2020 PREOPERATIVE DIAGNOSES: Lumbar spinal stenosis and foraminal stenosis L2-L3 and L3-L4, left. POSTOPERATIVE DIAGNOSES: Lumbar spinal stenosis and foraminal stenosis L2-L3 and L3-L4, left. PROCEDURE: Lumbar laminectomy, medial facetectomy and foraminotomy at L2-L3, L3-L4, left. SURGEON: Mohinder Stevens MD VENEER STOCK LAYER: Hugo Natarajan. DESCRIPTION AND TECHNIQUE: After induction of general endotracheal anesthesia, the patient was rolled prone on the Andrew frame. Lumbar spine was prepped and draped in usual sterile fashion. Fluoroscopic x-ray and spinal needle localized the L2-L3 interspace on the left side. After infiltration of 1:100,000 epinephrine and 1% lidocaine, a incision was carried out from the spinous process of L2-L4. Then, using Bovie cautery, the spinous processes and lamina of L2, L3 and L4 were exposed in subperiosteal manner. Next, after subperiosteal dissection of the spinous process and lamina of L2, L3 and L4, a Midas Jay Jay drill was used to perform a laminectomy at L2, L3 and L4 as well as medial facetectomy. Hypertrophied ligamentum flavum was removed with Cloward rongeurs. This relieved a compression on the L2, L3 and L4 nerve roots. Meticulous hemostasis was maintained throughout the wound. The fascia was closed with 2-0 Vicryl suture. Subdermal layer was closed with 3-0 Vicryl suture. The skin was closed with terrell. A sterile dressing was applied to the wound. The patient was awakened in good condition and taken to recovery. All counts were reported as correct. Estimated blood loss was minimal. TRANSINT:[id number] Voice Confirmation ID: [id number] DOCUMENT ID: [id number] MOHINDER STEVENS MD at 1101 CC: [id number] DICTATION DATE: 06/20/20 1521 ELECTROLYSIS NEEDLE OPERATOR: 06/20/20 1535 [facility] 06/13/20 [place] [address]
== END 2020-06-13 15:45 | disposition home or self-care (01) ==
LOC: D.OPS 08:40 → D.PAN 13:30 → D.OPS 15:00
PROVIDERS: Anesthesiology; ATTEND Neurological Surgery
DX: M54.16 Radiculopathy, lumbar region (principal); M53.86 Other specified dorsopathies, lumbar region; M48.061 Spinal stenosis, lumbar region without neurogenic claudication